=== PATIENT | female | born 1950 | race Caucasian/White ===

== ENCOUNTER 2017-02-06 06:03 | Emergency (ER) | payer OTHER, BC ==
[2017-02-06] MEDS ORDERED: ASPIRIN 81 MG CHEWABLE TABLETS PO ONE (06:10)
--- NOTE | 2017-02-06 06:15 | PDOC ---
History of Present Illness - General Stated Complaint: CHEST PAIN Time Seen by Provider: 02/06/17 06:09 - History of Present Illness Initial Comments: 02/06/17 06:10 CHIEF COMPLAINT: chest pain HISTORY OF PRESENT ILLNESS: 66 yo F with hx of HTN (not on medication), GERD, and anxiety BIBEMS for chest pain radiating down left arm and up left neck. Per EMS patient's BP on scene was 184/111 but repeat BP was 163/90. Patient had NSR on EKG at time of EMS arrival. No diaphoresis. Patient reports chest pain began overnight and that when she breaths in she feels chest tightness. Patient 's daughter reports that patient has not been sleeping well "and when she doesn' t sleep well she gets anxiety." No recent travel or sick contacts. PAST MEDICAL HISTORY: anxiety FAMILY HISTORY: Denies SOCIAL HISTORY: Denies tobacco, alcohol, illicit drug use. SURGICAL HISTORY: abdominoplasty ALLERGIES: No known drug allergies REVIEW OF SYSTEMS General/Constitutional: Denies fever or chills. Denies weakness, weight change. HEENT: Denies change in vision. Denies ear pain or discharge. Denies sore throat. Cardiovascular: Chest pain, shortness of breath. Respiratory: Denies cough, wheezing, or hemoptysis. Gastrointestinal: Denies nausea, vomiting, diarrhea or constipation. Genitourinary: Denies dysuria, frequency, or change in urination. Musculoskeletal: Denies joint or muscle swelling or pain. Denies neck or back pain. Skin and breasts: Denies rash or easy bruising. Neurologic: Denies headache, vertigo, loss of consciousness, or loss of sensation. PHYSICAL EXAM General Appearance: Well-appearing, appropriately dressed. No apparent distress. HEENT: EOMI, PERRLA, normal ENT inspection, normal voice, TMs normal, pharynx normal. No conjunctival pallor. No photophobia, scleral icterus. Neck: Supple. Trachea midline. No tenderness, rigidity, carotid bruit, stridor , lymphadenopathy, or thyromegaly. Respiratory/Chest: Lungs CTAB. No shortness of breath, chest tenderness, respiratory distress, accessory muscle use. No crackles, rales, rhonchi, stridor , wheezing, dullness Cardiovascular: RRR. S1, S2. Vascular Pulses: Dorsalis-Pedis (R): 2+, Dorsalis-Pedis (L): 2+ Gastrointestinal/Abdominal: Normal bowel sounds. Abdomen soft, non-distended. No tenderness or rebound tenderness. No organomegaly, pulsatile mass, guarding , hernia, hepatomegaly, splenomegaly. Lymphatic: No adenopathy, tenderness. Musculoskeletal/Extremities: Normal inspection. FROM of all extremities, normal capillary refill. Pelvis Stable. No CVA tenderness. No tenderness to extremities, pedal edema, swelling, erythema or deformity. Integumentary: Appropriate color, dry, warm. No cyanosis, erythema, jaundice or rash Neurologic: crane chaser II-XII intact. Fully oriented, alert. Appropriate mood/affect. Motor strength 5/5. No appreciable EOM palsy, facial droop or sensory deficit. Past History - Past Medical History Allergies/Adverse Reactions: Allergies Allergy/AdvReac Type Severity Reaction Status Date / Time No Known Drug Allergies Allergy Verified 03/20/16 11:19 Home Medications: Ambulatory Orders Potassium Chloride [Klor-Con 10] 10 meq PO DAILY 12/26/14 Telmisartan 80 mg PO DAILY 12/26/14 Alprazolam 2 mg PO TID PRN 03/19/16 Bupropion HCl [Wellbutrin Xl -] 150 mg PO DAILY 03/19/16 Mirtazapine [Remeron -] 15 mg PO HS 03/19/16 Triamterene/Hydrochlorothiazid [Triamterene-Hctz 37.5-25 mg Cp] 1 each PO DAILY 03/19/16 Anemia: No Asthma: No Cancer: No Cardiac Disorders: No CVA: No COPD: No CHF: No Dementia: No Diabetes: No GI Disorders: Yes (GERD) Disorders: Yes (URGENCY) HTN: Yes Hypercholesterolemia: Yes Liver Disease: No Seizures: No Thyroid Disease: No - Surgical History Abdominal Surgery: Yes (ABDOMINOPLASTY 2012) Appendectomy: No Cardiac Surgery: No Cholecystectomy: No Lung Surgery: No Neurologic Surgery: No Orthopedic Surgery: Yes - Psycho/Social/Smoking Cessation Hx Suicidal Ideation: No Smoking History: Never smoked Have you smoked in the past 12 months: No Hx Alcohol Use: No Drug/Substance Use Hx: No Substance Use Type: None Hx Substance Use Treatment: No Cardiac Specific PMH - Complaint Specific PMHX Pacemaker: No *Physical Exam - Vital Signs Last Vital Signs Temp Pulse Resp BP Pulse Ox 97.8 F 70 18 153/93 98 02/06/17 06:10 02/06/17 12:20 02/06/17 12:20 02/06/17 12:20 02/06/17 12:20 ED Treatment Course - LABORATORY CBC & Chemistry Diagram: 02/06/17 06:26 02/06/17 06:26 - ADDITIONAL ORDERS Additional order review: 02/06/17 06:26 RBC 4.30 MCV 82.1 MCHC 33.6 RDW 13.8 MPV 9.8 Neutrophils % 58.1 Lymphocytes % 32.1 Monocytes % 6.5 Eosinophils % 2.9 Basophils % 0.4 - Medications Given in the ED: ED Medications Discontinued Medications Generic Name Dose Route Start Last Admin Trade Name Harmeet PRN Reason Stop Dose Admin Aspirin 162 mg 02/06/17 06:10 02/06/17 06:21 Asa - PO 02/06/17 06:11 162 mg ONCE ONE Administration Sodium Chloride 1,000 mls @ 1,000 mls/hr 02/06/17 07:35 02/06/17 08:06 Normal Saline - IV 02/06/17 08:34 1,000 mls/hr ASDIR STA Administration Potassium Chloride 40 meq 02/06/17 07:36 02/06/17 08:06 K-Dur - PO 02/06/17 07:37 40 meq ONCE ONE Administration Medical Decision Making - Medical Decision Making 02/06/17 06:14 66 yo F with hx of HTN (not on medication) BIBEMS for chest pain radiating down left arm and up left neck. VSS on exam. -EKG, CXR -CBC, CMP, PT/INR, Mg, card profile 02/06/17 06:26 EKG: NSR Case discussed in detail with oncoming emergency provider including history, physical exam and ancillary studies. In brief, this patient is being seen in the ED for a chief complaint of: I have completed the initial assessment interview note and have ordered the following labs: CBC, CMP, PT/INR, Mg, card profile I have reviewed the following results: none Pending results: all Plan for disposition as follows: pending Oncoming NPA Darby has assumed care for the patient and will complete the evaluation and treatment. *DC/Admit/Observation/Transfer Diagnosis at time of Disposition: Chest pain Qualifiers: Chest pain type: unspecified Qualified Code(s): R07.9 - Chest pain, unspecified - Discharge Dispostion Disposition: HOME Condition at time of disposition: Good - Referrals Referrals: Armand Isaacs MD [Primary Care Provider] - - Patient Instructions Printed Discharge Instructions: DI for Atypical Chest Pain Additional Instructions: Please up with your primary care physician as needed. Please take your medication as prescribed. Please return to ED if his symptoms return or worsen.
--- NOTE | 2017-02-06 06:18 | PDOC ---
ED Treatment Course - LABORATORY CBC & Chemistry Diagram: 02/06/17 06:26 02/06/17 06:26 Medical Decision Making - Medical Decision Making 02/06/17 06:18 agree with care from MATEUS Cancino *DC/Admit/Observation/Transfer Diagnosis at time of Disposition: Chest pain - Discharge Dispostion Disposition: HOME Condition at time of disposition: Good - Referrals Referrals: Armand Isaacs MD [Primary Care Provider] - - Patient Instructions Printed Discharge Instructions: DI for Atypical Chest Pain Additional Instructions: Please up with your primary care physician as needed. Please take your medication as prescribed. Please return to ED if his symptoms return or worsen.
[2017-02-06] MEDS ORDERED: ASPIRIN 81 MG CHEWABLE TABLETS ONE (06:19)
[2017-02-06 06:28] VITALS: TEMP 97.8; BMI 28.1
[2017-02-06 06:35] LABS: BASOPHIL 0.4 % (0-2.0); EOSINOPHIL 2.9 % (0-4.5); MCH 27.6 pg (25.7-33.7); MCHC 33.6 g/dl (32.0-36.0); MEAN CELL VOLUME 82.1 fl (80-96); MEAN PLT VOLUME 9.8 fl (7.5-11.1); NEUTROPHILS 58.1 % (42.8-82.8); PLATELET COUNT 163 K/MM3 (134-434); RDW 13.8 % (11.6-15.6); WHITE BLOOD COUNT 6.1 K/mm3 (4.0-10.0)
[2017-02-06 06:57] LABS: ALBUMIN 3.9 g/dl (3.4-5.0); ANION GAP 10 (8-16); BILIRUBIN,TOTAL 0.3 mg/dL (0.2-1.0); CALCIUM 9.8 mg/dL (8.5-10.1); CO2 30 mmol/L (21-32); COCKROFT - GAULT 53.4225; CREATININE 1.2 mg/dL (0.55-1.02); GLUCOSE,RANDOM 119 mg/dL (74-106); INR 1.04 (0.82-1.09); MAGNESIUM 1.8 mg/dL (1.8-2.4); PROTHROMBIN TIME (PATIENT) 11.4 SEC (9.98-11.88); SGOT/AST 34 U/L (15-37); SGPT/ALT 32 U/L (12-78); TOT PROT 7.9 g/dl (6.4-8.2)
[2017-02-06 07:00] LABS: ALK PHOS 94 U/L (45-117); TROPONIN I < 0.02 ng/ml (0.00-0.05)
[2017-02-06] MEDS ORDERED: SODIUM CHLORIDE 1,000 ML IV STA (07:35)
[2017-02-06] MEDS ORDERED: POTASSIUM CHLORIDE TABS 20 MEQ TABLET.ER (FP) PO ONE (07:36)
--- NOTE | 2017-02-06 07:41 | PDOC ---
*Physical Exam - Vital Signs Last Vital Signs Temp Pulse Resp BP Pulse Ox 97.8 F 75 18 135/77 100 02/06/17 06:10 02/06/17 06:10 02/06/17 06:10 02/06/17 06:10 02/06/17 06:10 Heart Score/ECG Review #2 ECG reviewed & interpreted by me at: 10:54 General ECG Interpretation: Sinus Rhythm (rate 69) Compared to previous ECG there are: No significant change ED Treatment Course - LABORATORY CBC & Chemistry Diagram: 02/06/17 06:26 02/06/17 06:26 - ADDITIONAL ORDERS Additional order review: Laboratory Results 02/06/17 02/06/17 06:26 06:26 INR 1.04 Sodium 142 Potassium 3.2 L Chloride 102 Carbon Dioxide 30 Anion Gap 10 BUN 41 H D Creatinine 1.2 H D Creat Clearance w eGFR 44.81 Random Glucose 119 H D Calcium 9.8 Magnesium 1.8 Total Bilirubin 0.3 AST 34 D ALT 32 Alkaline Phosphatase 94 D Creatine Kinase 328 H CK-MB (CK-2) 4.536 H Troponin I < 0.02 Total Protein 7.9 Albumin 3.9 02/06/17 06:26 RBC 4.30 MCV 82.1 MCHC 33.6 RDW 13.8 MPV 9.8 Neutrophils % 58.1 Lymphocytes % 32.1 Monocytes % 6.5 Eosinophils % 2.9 Basophils % 0.4 - Medications Given in the ED: ED Medications Discontinued Medications Generic Name Dose Route Start Last Admin Trade Name Freq PRN Reason Stop Dose Admin Aspirin 162 mg 02/06/17 06:10 02/06/17 06:21 Asa - PO 02/06/17 06:11 162 mg ONCE ONE Administration Medical Decision Making - Medical Decision Making 02/06/17 07:38 Pt received in sign out from MATEUS Cancino. pt with cp which was pressure to chest accompanied with tingling to left arm. pt also was experiencing anxiety followed by panic attack. Pt currently asymptomatic. labs with k of 3.2, creat 1.2 (0.6 prev), and elevated ck. Pt will be ordered fluid, kdur and repeat ekg and cardiac profile scheduled for 1030. 02/06/17 07:42 Laboratory Tests 02/06/17 02/06/17 06:26 06:26 WBC 6.1 Hgb 11.9 D Hct 35.3 Plt Count 163 D Sodium 142 Potassium 3.2 L BUN 41 H D Creatinine 1.2 H D Random Glucose 119 H D Magnesium 1.8 Creatine Kinase 328 H CK-MB (CK-2) 4.536 H Troponin I < 0.02 02/06/17 12:09 Laboratory Tests 02/06/17 10:35 Creatine Kinase 281 H Troponin I < 0.02 Patient remains asymptomatic. Will repeat patient's vitals prior to discharge. Patient will follow up with her PCP as needed *DC/Admit/Observation/Transfer Diagnosis at time of Disposition: Chest pain Qualifiers: Chest pain type: unspecified Qualified Code(s): R07.9 - Chest pain, unspecified - Discharge Dispostion Disposition: HOME Condition at time of disposition: Good - Referrals Referrals: Armand Isaacs MD [Primary Care Provider] - - Patient Instructions Printed Discharge Instructions: DI for Atypical Chest Pain Additional Instructions: Please up with your primary care physician as needed. Please take your medication as prescribed. Please return to ED if his symptoms return or worsen.
[2017-02-06] MEDS ORDERED: POTASSIUM CHLORIDE ORAL LIQUID 20 MEQ/15 ML ONE (07:56)
[2017-02-06 11:59] LABS: TROPONIN I < 0.02 ng/ml (0.00-0.05)
[2017-02-06 12:20] VITALS: BP 153/93; PULSE 70
--- NOTE | 2017-02-06 12:30 | EKG ---
Test Reason : Blood Pressure : / mmHG Vent. Rate : 083 BPM Atrial Rate : 083 BPM P-R Int : 174 ms QRS Dur : 102 ms QT Int : 410 ms P-R-T Axes : 058 -05 017 degrees QTc Int : 481 ms NORMAL SINUS RHYTHM NORMAL ECG WHEN COMPARED WITH ECG OF 09-JUN-2011 21:04, NO SIGNIFICANT CHANGE WAS FOUND Confirmed by JULIUS PACK MD ([id number]) on 02/06/2017 12:29:57 PM Referred By: Confirmed By:JULIUS PACK MD
== END 2017-02-06 12:18 | disposition home or self-care (01) ==
LOC: JER 06:03
PROC: 3E0337Z Introduction of Electrolytic and Water Balance Substance into Peripheral Vein, Percutaneous Approach (ICD-10-PCS; principal; 2017-02-06)
DX: R07.9 Chest pain, unspecified (principal); I10 Essential (primary) hypertension; K21.9 Gastro-esophageal reflux disease without esophagitis; F41.9 Anxiety disorder, unspecified
CPT/HCPCS: 36415; 71010-TC; 80053; 82550; 82553; 83735; 84484; 85025; 85610; 93005; 93010; 99282-25

== ENCOUNTER 2022-11-08 13:48 | Inpatient (IN) | payer OTHER, BC ==
[2022-11-08] MEDS ORDERED: ACETAMINOPHEN 1000 MG/100 ML BAG IVPB ONE (15:00)
[2022-11-08] MEDS ORDERED: ACETAMINOPHEN INJECTION 100 ML IVPB ONE (15:18)
[2022-11-08 16:31] LABS: EPI CELLS 3 /uL (0-25.1); HYALINE CASTS 0 /uL (0-3.1); PH,URINE 6.5 (5.0-8.0); URINE APPEARANCE CLEAR; URINE BACTERIA 1773 /uL (0-1359); URINE BILIRUBIN NEGATIVE (NEGATIVE); URINE COLOR YELLOW; URINE GLUCOSE (UA) NEGATIVE (NEGATIVE); URINE KETONE NEGATIVE (NEGATIVE); URINE LEUK ESTERASE 3+ (NEGATIVE); URINE NITRITE NEGATIVE (NEGATIVE); URINE PROTEIN NEGATIVE (NEGATIVE); URINE RBC 6 /uL (0-23.9); URINE UROBILINOGEN 0.2 mg/dL (0.2-1.0); URINE WBC 252 /uL (0-25.8)
[2022-11-08] MEDS ORDERED: CEFTRIAXONE 1,000 MG in DEXTROSE 5%-WATER - 50 ML IVPB ONE (16:46)
[2022-11-08] MEDS ORDERED: CEFTRIAXONE 1 GM/50 ML BAG ONE (16:52)
[2022-11-08 18:14] LABS: BASO % 1.1 % (0-2.0); EOS % 4.6 % (0-4.5); HEMATOCRIT 40.9 % (32.4-45.2); HEMOGLOBIN 13.9 GM/dL (10.7-15.3); MCH 28.6 pg (25.7-33.7); MCHC 33.9 g/dl (32.0-36.0); MEAN CELL VOLUME 84.4 fl (80-96); MEAN PLT VOLUME 9.3 fl (7.5-11.1); MONO % 6.8 % (3.8-10.2); NEUT % 56.5 % (42.8-82.8); PLATELET COUNT 236 10^3/uL (134-434); RBC 4.84 M/mm3 (3.60-5.2); RDW 14.4 % (11.6-15.6); WHITE BLOOD COUNT 7.3 K/mm3 (4.0-10.0)
[2022-11-08 18:30] LABS: ALBUMIN 3.9 g/dl (3.4-5.0); CALCIUM 10.1 mg/dL (8.5-10.1)
[2022-11-08 18:31] LABS: BLOOD UREA NITROGEN 22.1 mg/dL (7-18)
[2022-11-08 18:33] LABS: CREATININE 0.8 mg/dL (0.55-1.3)
[2022-11-08 18:35] LABS: BILIRUBIN,TOTAL 0.6 mg/dL (0.2-1)
[2022-11-08] MEDS ORDERED: morphine CARPU-JECT 2 MG/1 ML DISP.SYRIN IVPUSH ONE (21:35)
[2022-11-09] MEDS ORDERED: ACETAMINOPHEN 1000 MG/100 ML BAG IVPB ONE (00:41)
[2022-11-09] MEDS ORDERED: KETOROLAC TROMETHAMINE 30 MG/1 ML VIAL IVPUSH ONE ×2 (00:56→07:53)
[2022-11-09] MEDS ORDERED: KETOROLAC TROMETHAMINE 30 MG/1 ML VIAL ONE ×2 (00:57→08:08)
[2022-11-09] MEDS ORDERED: ACETAMINOPHEN 325 MG TABLET (FP) PO PRN (01:03)
[2022-11-09] MEDS ORDERED: SODIUM CHLORIDE 1,000 ML IV SCH (01:15)
[2022-11-09 06:59] LABS: BLOOD UREA NITROGEN 18.9 mg/dL (7-18); CALCIUM 9.4 mg/dL (8.5-10.1)
[2022-11-09 07:00] LABS: ALBUMIN 3.7 g/dl (3.4-5.0)
[2022-11-09 07:03] LABS: CREATININE 0.9 mg/dL (0.55-1.3)
[2022-11-09 07:04] LABS: BILIRUBIN,TOTAL 0.6 mg/dL (0.2-1); TOT PROT 7.6 g/dl (6.4-8.2)
[2022-11-09 07:18] LABS: BASO % 0.8 % (0-2.0); EOS % 5.2 % (0-4.5); HEMATOCRIT 37.6 % (32.4-45.2); LYMPH % 40.5 % (8-40); MCH 28.4 pg (25.7-33.7); MCHC 34.6 g/dl (32.0-36.0); MEAN PLT VOLUME 9.3 fl (7.5-11.1); NEUT % 46.5 % (42.8-82.8); PLATELET COUNT 212 10^3/uL (134-434); RBC 4.59 M/mm3 (3.60-5.2); RDW 14.2 % (11.6-15.6); WHITE BLOOD COUNT 6.7 K/mm3 (4.0-10.0)
[2022-11-09 08:47] VITALS: BMI 28.5
[2022-11-09] MEDS: ENOXAPARIN NA (PORCINE) 40 MG/0.4 ML DISP.SYRIN SQ SCH (09:33)
[2022-11-09] MEDS: LOSARTAN POTASSIUM 50 MG TABLET PO SCH (09:35)
[2022-11-09] MEDS: amLODIPine BESYLATE 2.5 MG TABLET (FP) PO SCH (09:35)
[2022-11-09] MEDS: HYDROCHLOROTHIAZIDE 25 MG TABLET (FP) PO SCH (09:35)
[2022-11-09] MEDS: PARoxetine HCL 20 MG TABLET PO SCH (09:36)
[2022-11-09] MEDS ORDERED: POTASSIUM CHLORIDE 10 MEQ PO SCH (10:00)
[2022-11-09] MEDS ORDERED: PATIENT'S OWN MEDICATION (NON-FORMULARY) (Telmisartan/Hydrochlorothiazid [Telmisartan-Hctz PO SCH (10:00)
[2022-11-09] MEDS ORDERED: CEFTRIAXONE 1 GM in DEXTROSE 5%-WATER - 50 ML IVPB SCH (10:00)
[2022-11-09] MEDS: CEFTRIAXONE 1 GM in DEXTROSE 5%-WATER - 50 ML IVPB SCH (10:17)
[2022-11-09] MEDS: KETOROLAC TROMETHAMINE 15 MG/ML VIAL IVPUSH PRN (21:00)
[2022-11-09] MEDS: MIRTAZAPINE 15 MG TABLET (FP) PO SCH (21:57)
[2022-11-09] MEDS: clonazePAM 0.5 MG TABLET PO SCH (21:57)
[2022-11-10] MEDS: KETOROLAC TROMETHAMINE 15 MG/ML VIAL IVPUSH PRN (07:18)
[2022-11-10] MEDS: LOSARTAN POTASSIUM 50 MG TABLET PO SCH (09:11)
[2022-11-10] MEDS: ENOXAPARIN NA (PORCINE) 40 MG/0.4 ML DISP.SYRIN SQ SCH (09:12)
[2022-11-10] MEDS: HYDROCHLOROTHIAZIDE 25 MG TABLET (FP) PO SCH (09:12)
[2022-11-10] MEDS: CEFTRIAXONE 1 GM in DEXTROSE 5%-WATER - 50 ML IVPB SCH (09:12)
[2022-11-10] MEDS: PARoxetine HCL 20 MG TABLET PO SCH (09:12)
[2022-11-10] MEDS: amLODIPine BESYLATE 2.5 MG TABLET (FP) PO SCH (09:12)
[2022-11-10] MEDS: LIDOCAINE 5% TOPICAL PATCH TP SCH (13:21)
[2022-11-10] MEDS ORDERED: BISACODYL 10 MG SUPP.RECT PR ONE (13:28)
[2022-11-10] MEDS ORDERED: POLYETHYLENE GLYCOL (HEALTHYLAX) 3350 17 GM PACKET PO ONE (13:30)
[2022-11-10] MEDS: ACETAMINOPHEN 325 MG TABLET (FP) PO SCH ×2 (17:50→21:59)
[2022-11-10] MEDS ORDERED: LIDOCAINE PATCH REMOVAL MC SCH (22:00)
[2022-11-10] MEDS: clonazePAM 0.5 MG TABLET PO SCH (22:00)
[2022-11-10] MEDS: MIRTAZAPINE 15 MG TABLET (FP) PO SCH (22:00)
[2022-11-11] MEDS: ACETAMINOPHEN 325 MG TABLET (FP) PO SCH ×5 (02:40→18:49)
[2022-11-11 05:21] VITALS: RESP 18
[2022-11-11] MEDS: HYDROCHLOROTHIAZIDE 25 MG TABLET (FP) PO SCH (09:20)
[2022-11-11] MEDS: LOSARTAN POTASSIUM 50 MG TABLET PO SCH (09:22)
[2022-11-11] MEDS: amLODIPine BESYLATE 2.5 MG TABLET (FP) PO SCH (09:22)
[2022-11-11] MEDS: LIDOCAINE 5% TOPICAL PATCH TP SCH (09:24)
[2022-11-11] MEDS: PARoxetine HCL 20 MG TABLET PO SCH (09:25)
[2022-11-11 09:56] LABS: BASO % 1.1 % (0-2.0); EOS % 5.7 % (0-4.5); HEMOGLOBIN 14.7 GM/dL (10.7-15.3); LYMPH % 34.6 % (8-40); MCH 28.6 pg (25.7-33.7); MEAN CELL VOLUME 81.6 fl (80-96); MEAN PLT VOLUME 8.8 fl (7.5-11.1); MONO % 4.8 % (3.8-10.2); NEUT % 53.8 % (42.8-82.8); PLATELET COUNT 237 10^3/uL (134-434); RBC 5.14 M/mm3 (3.60-5.2); WHITE BLOOD COUNT 7.3 K/mm3 (4.0-10.0)
[2022-11-11 09:59] LABS: CHLORIDE 95 mmol/L (98-107); SODIUM 136 mmol/L (136-145)
[2022-11-11] MEDS ORDERED: CEFUROXIME AXETIL 500 MG TABLET PO SCH (10:00)
[2022-11-11 10:01] LABS: CALCIUM 9.6 mg/dL (8.5-10.1)
[2022-11-11 10:02] LABS: BLOOD UREA NITROGEN 15.4 mg/dL (7-18); CO2 31 mmol/L (21-32); GLUCOSE,RANDOM 180 mg/dL (74-106)
[2022-11-11 10:05] LABS: SGOT/AST 31 U/L (15-37); SGPT/ALT 30 U/L (13-61)
[2022-11-11 10:07] LABS: ALK PHOS 85 U/L (45-117); ANION GAP 10 MMOL/L (8-16); BILIRUBIN,TOTAL 0.8 mg/dL (0.2-1); TOT PROT 8.7 g/dl (6.4-8.2)
[2022-11-11] MEDS ORDERED: traMADol HCL 50 MG TABLET PO ONE (10:50)
[2022-11-11] MEDS ORDERED: POTASSIUM CHLORIDE ORAL LIQUID 20 MEQ/15 ML PO ONE (10:50)
[2022-11-11] MEDS ORDERED: traMADol HCL 50 MG TABLET PO PRN (11:04)
[2022-11-11] MEDS: ENOXAPARIN NA (PORCINE) 40 MG/0.4 ML DISP.SYRIN SQ SCH (12:28)
[2022-11-11 15:36] VITALS: BP 133/72; PULSE 89; TEMP 97.8
[2022-11-11] MEDS ORDERED: POTASSIUM CHLORIDE TABS 20 MEQ TABLET.ER (FP) PO SCH (18:30)
== END 2022-11-11 19:08 | disposition home or self-care (01) | DRG 690 ==
LOC: JER 13:48 → JERBED 21:39 → J8W 11-09 08:35
PROVIDERS: ADMIT Internal Medicine; ATTEND Nurse Practitioner Family
DX: N12 Tubulo-interstitial nephritis, not specified as acute or chronic (principal); I10 Essential (primary) hypertension; F32.A Depression, unspecified; N28.1 Cyst of kidney, acquired; D25.9 Leiomyoma of uterus, unspecified; B96.20 Unspecified Escherichia coli [E. coli] as the cause of diseases classified elsewhere
CPT/HCPCS: 0241U-QW; 36415; 71275-TC; 74174-TC; 76775-TC; 80053; 81003; 83735; 84100; 84132; 85025; 87086; 87186; 93005; 93010; 99285-25; Q9967